=== PATIENT | female | born 1985 | race Caucasian/White ===

== ENCOUNTER 2017-07-11 02:02 | Emergency (ER) | payer OTHER ==
[~2017-07-11] VITALS: Ht 162.6 cm; Wt 77.1 kg
[~2017-07-11 02:02] MED LIST: CELEXA 10 MG TA10 M1 PO; NORCO 7.5-3251 EACH PO
[2017-07-11 02:53] LABS: HEMATOCRIT 39.3 % (37.0-47.0); HEMOGLOBIN 13.2 gm/dL (12.0-15.0); MCH 30.6 pg (26.0-34.0); MCHC 33.6 g/dL (28.0-37.0); RBC 4.32 mil/uL (4.20-5.00); RDW 13.1 % (10.5-14.5); WBC 13.8 thou/uL (4.0-11.0)
[2017-07-11 03:01] LABS: CALCIUM 9.5 mg/dL (8.5-10.1); CREATININE 0.8 mg/dL (0.6-1.0); POTASSIUM 3.9 mmol/L (3.5-5.1)
[2017-07-11 03:07] LABS: TOTAL BILIRUBIN 0.4 mg/dL (<0.1-1.0); TOTAL PROTEIN 7.3 g/dL (6.4-8.2)
[2017-07-11] MEDS ORDERED: ONDANSETRON HCL4 M2 PO (03:13)
== END 2017-07-11 04:00 | disposition home or self-care (01) ==
LOC: ER 02:02
PROVIDERS: Emergency Medicine
DX: R10.9 Unspecified abdominal pain (principal); R11.2 Nausea with vomiting, unspecified; R19.7 Diarrhea, unspecified; F17.210 Nicotine dependence, cigarettes, uncomplicated; Z88.0 Allergy status to penicillin